=== PATIENT | male | born 1965 | race Hispanic/Latino ===

== ENCOUNTER 2021-10-30 19:30 | Emergency (ER) | payer SELFPAY ==
[~2021-10-30] VITALS: Ht 162.6 cm; Wt 68.0 kg
[2021-10-30 21:11] VITALS: BP 135/83
[2021-10-30 21:15] VITALS: BP 141/88
[2021-10-30 21:24] LABS: HEMATOCRIT 46.3 % (39.0-50.0); HEMOGLOBIN 15.7 g/dl (14.0-18.0); IMMATURE GRANULOCYTES 0.2 % (0.0-5.0); MEAN CELL VOLUME 91.1 fL CALC (80.0-100.0); MEAN CORPUSCULAR HGB 30.9 pG CALC (26.0-32.0); MEAN CORPUSCULAR HGB CONC 33.9 g/dL CAL (32.0-36.0); NEUT# 2.85 thou/uL (1.82-7.42); RED BLOOD COUNT 5.08 mill/uL (4.70-6.10); RED CELL DISTRI WIDTH 13.3 % (11.5-15.5)
[2021-10-30 21:30] VITALS: BP 140/85
[2021-10-30 21:43] LABS: ALBUMIN 4.6 g/dL (3.2-5.0); ALKALINE PHOSPHATASE 78 u/l (38-126); ANION GAP 18 (6-22 (CALC)); BUN 6 mg/dL (9-20); BUN/CREATININE RATIO 10 (12-20 (CALC)); CARBON DIOXIDE 23 mmol/l (22-30); CHLORIDE 100 mmol/l (95-108); CREATININE 0.6 mg/dL (0.7-1.3); ETHYL ALCOHOL 81 mg/dl (0-30); GFR > 60 ML/MIN (>=60 (CALC)); GFR FOR AFR.AMER. > 60 ML/MIN (>=60 (CALC)); POTASSIUM 4.2 mmol/l (3.5-5.1); SGOT/AST 38 u/l (17-59); SODIUM 137 mmol/l (137-146); TOTAL PROTEIN 8.1 g/dL (6.3-8.2)
[2021-10-30 22:00] VITALS: BP 134/81
[2021-10-30 22:15] VITALS: BP 128/82
[2021-10-30 22:31] VITALS: BP 143/78
[2021-10-30 23:14] LABS: URINE BILIRUBIN - DIPSTICK NEGATIVE (NEGATIVE); URINE BLOOD DIPSTICK NEGATIVE (NEGATIVE); URINE COLOR YELLOW; URINE GLUCOSE - DIPSTICK NEGATIVE (NEGATIVE); URINE KETONE NEGATIVE (NEGATIVE); URINE LEUK ESTERASE NEGATIVE (NEGATIVE); URINE PROTEIN - DIPSTICK NEGATIVE (NEG-TRACE); URINE SPECIFIC GRAVITY <=1.005; URINE UROBILINOGEN - DIPSTICK 0.2 E.U./dL (0.2)
[2021-10-30 23:15] LABS: URINE NITRITE - DIPSTICK NEGATIVE (Negative)
[2021-10-31] MEDS ORDERED: NAPROXEN375 MG PO (00:07)
[2021-10-31 00:39] VITALS: BP 130/84
[2021-10-31 00:46] VITALS: BP 130/84
== END 2021-10-31 07:29 | disposition home or self-care (01) | DRG 103 ==
LOC: ED 19:30
PROVIDERS: Family Medicine
DX: R51.9 Headache, unspecified (principal); F10.10 Alcohol abuse, uncomplicated